=== PATIENT | female | born 1975 | race American Indian/Alaskan Native ===

== ENCOUNTER 2021-10-11 11:27 | Emergency (ER) | payer OTHER ==
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
== END 2021-10-11 12:33 | disposition home or self-care (01) ==
LOC: JP.ED 11:27
DX: S00.03XA Contusion of scalp, initial encounter (principal); V47.5XXA Car driver injured in collision with fixed or stationary object in traffic accident, initial encounter
CPT/HCPCS: 99283